=== PATIENT | male | born 2000 | race Two or more races ===

== ENCOUNTER 2024-12-12 16:19 | Emergency (ER) | payer OTHER ==
[2024-12-12] MEDS: Ketorolac 30 MG/ML SDV IM ONE (17:05)
== END 2024-12-12 18:57 ==
LOC: FB.ED 16:19
DX: S62.521B Displaced fracture of distal phalanx of right thumb, initial encounter for open fracture (principal); W26.8XXA Contact with other sharp object(s), not elsewhere classified, initial encounter; Y93.89 Activity, other specified
CPT/HCPCS: 64450; 73130-RT; 96372; 99284-25; J0696; J1885